=== PATIENT | male | born 1995 | race Two or more races ===

== ENCOUNTER 2019-05-17 22:44 | Emergency (ER) | payer OTHER ==
[2019-05-17 23:00] VITALS: BP 137/74
[2019-05-18] MEDS ORDERED: DOCUSATE SODIUM 100 MG CAPSULE PO ONE (00:52)
[2019-05-18] MEDS ORDERED: HYDROCODONE/ACETAMINOPHEN 5-325 MG (6 TAB/ER DISP) PO PRN (00:52)
--- NOTE | 2019-05-18 00:53 | ER Document Report ---
HPI - HPI Time Seen by Provider: 05/18/19 00:22 Pain Level: 2 Context: Patient is a 23-year-old male that comes emergency department for chief complaint of rectal pain. He states that he started bleeding from the rectal area as well. He states he was seen by urgent care, prescribed cortisone cream, however he started hurting worse and bleeding today and he became concerned. Symptoms started couple days ago. He did have a bowel movement just prior to arrival before the bleeding worsened but the bowel movement was normal except for some bright red blood in it. He denies abdominal pain, fever/chills, or any other complaints. He denies history of the same. He denies any daily medications or past medical history other than dental surgery. Past Medical History - General Information source: Patient - Social History Smoking Status: Former Smoker Frequency of alcohol use: None Drug Abuse: None Lives with: Family Family History: Reviewed & Not Pertinent Patient has suicidal ideation: No Patient has homicidal ideation: No Renal/ Medical History: Reports: Hx Kidney Stones Past Surgical History: Reports: Hx Oral Surgery - Immunizations Immunizations up to date: Yes Hx Diphtheria, Pertussis, Tetanus Vaccination: Yes Vertical Provider Document - CONSTITUTIONAL General Appearance: WD/WN, No Apparent Distress - HEENT HEENT: Atraumatic, Normocephalic - NECK Neck: Normal Inspection - RESPIRATORY Respiratory: Breath Sounds Normal, No Respiratory Distress - CARDIOVASCULAR Cardiovascular: Regular Rate, Regular Rhythm - GI/ABDOMEN Gastrointestinal: Abdomen Soft, Abdomen Non-Tender Notes: Rectal exam performed with Karma CANALES at bedside. This shows 2 small external hemorrhoids with no current bleeding, no thrombosed external hemorrhoid, no concerning erythema or tenderness, no fissure, no mass on rectal exam, no severe tenderness on rectal exam. - BACK Back: Normal Inspection - MUSCULOSKELETAL/EXTREMETIES Musculoskeletal/Extremeties: MAEW, FROM, Non-Tender - NEURO Level of Consciousness: Awake, Alert, Appropriate Motor/Sensory: No Motor Deficit, No Sensory Deficit - DERM Integumentary: Warm, Dry, No Rash Course - Re-evaluation Re-evalutation: Patient appears to have bled from 2 external hemorrhoids, these are nonthrombosed, these are actually quite small now, no significant tenderness, no signs of infection, no concerning findings otherwise. Discussed with patient. Discussed recommendations, follow-up, return precautions. Patient states appreciation and agreement. - Vital Signs Vital signs: Temp Pulse Resp BP Pulse Ox 98.1 F 72 16 137/74 H 99 05/17/19 22:58 05/17/19 22:58 05/17/19 22:58 05/17/19 22:58 05/17/19 22:58 Discharge - Discharge Clinical Impression: External hemorrhoids, Rectal pain Disposition: HOME, SELF-CARE Additional Instructions: Your evaluation shows 2 external hemorrhoids. These do appear to be improving and they should resolve with time with proper care. You can continue the previously prescribed cream, use the suppository as prescribed as well, use the stool softener. Warm sitz-baths may also decrease pain, swelling, and itching. Eat a high-fiber diet. Keep the area very clean. Medicated cleansing pads (such as Tucks) are useful after bowel movements. A hose-mounted shower unit (like a shower massager at low water pressure) can be used to clean around tender hemorrhoid tags. Follow-up with the surgical referral to be seen in the clinic for additional management. You should call the doctor or return if you develop fever, increasing pain, or an enlarging mass around the anus, or any other concerning or worsening symptoms. Prescriptions: Phenylephrine HCl [Anusol Suppository] 1 supp.rect MT BID #28 supp.rect Docusate Sodium [Colace 100 mg Capsule] 100 mg PO ASDIR PRN #30 capsule PRN Reason: Forms: Return to Work Referrals: [facility] [Provider Group] - Follow up as needed
== END 2019-05-18 01:09 | disposition home or self-care (01) ==
LOC: ER 22:44
DX: K64.4 Residual hemorrhoidal skin tags (principal); K62.89 Other specified diseases of anus and rectum; Z87.891 Personal history of nicotine dependence
CPT/HCPCS: 99282